=== PATIENT | female | born 1995 | race African-American/Black ===

== ENCOUNTER → 2019-03-16 | Outpatient (CLI) | payer OTHER | END | disposition home or self-care (01) | LOC: EMPHLTH 09:30 | PROVIDERS: ATTEND Internal Medicine | DX: R76.11 Nonspecific reaction to tuberculin skin test without active tuberculosis (principal) | CPT/HCPCS: 86706; 86735; 86762; 86765; 86787 ==

== ENCOUNTER → 2020-04-18 | Outpatient (CLI) | payer OTHER | END | disposition home or self-care (01) | LOC: EEVIPCON 16:06 → EMS 16:06 | DX: Z20.828 Contact with and (suspected) exposure to other viral communicable diseases (principal) | CPT/HCPCS: U0003-CS ==

== ENCOUNTER 2020-04-28 23:57 | Emergency (ER) | payer OTHER ==
[~2020-04-28] VITALS: Ht 162.6 cm; Wt 95.5 kg
[2020-04-29] MEDS ORDERED: IBUPROFEN 600 MG TABLET PO ONE (02:30)
[2020-04-29] MEDS ORDERED: ACETAMINOPHEN 500 MG TABLET PO ONE (02:30)
[2020-04-29] MEDS ORDERED: CEPHALEXIN MONOHYDRATE 500 MG CAPSULE PO ONE (03:15)
[2020-04-29 03:22] VITALS: BP 115/55
[2020-04-29 03:26] LABS: RAPID GROUP A STREP NEGATIVE (NEGATIVE)
== END 2020-04-29 03:22 | disposition home or self-care (01) ==
LOC: EMS 23:57
DX: R50.9 Fever, unspecified (principal); R11.10 Vomiting, unspecified; R51 Headache; Z20.828 Contact with and (suspected) exposure to other viral communicable diseases
CPT/HCPCS: 87426; 87430